=== PATIENT | female | born 1990 | race Two or more races ===

== ENCOUNTER 2017-06-15 15:20 | Emergency (ER) | payer OTHER ==
[2017-06-15 15:27] VITALS: BMI 34.2
--- NOTE | 2017-06-15 15:27 | PDOC ---
Rapid Medical Evaluation Chief Complaint: Pain Time Seen by Provider: 06/15/17 15:23 Medical Evaluation: 06/15/17 15:24 Pt presents with complaint of : dizziness, abd pain and vag discharge with itching On brief exam: vss I have ordered the following:proceed to L& D Pt will go to the 3 rd floor Discharge Disposition - Diagnosis Abdominal pain Qualifiers: Abdominal location: lower abdomen, unspecified Qualified Code(s): R10.30 - Lower abdominal pain, unspecified - Referrals - Patient Instructions - Post Discharge Activity
[2017-06-15 16:43] VITALS: BP 94/55; PULSE 90; TEMP 98.4
== END 2017-06-15 17:00 | disposition home or self-care (01) ==
LOC: JER 15:20
DX: O26.893 Other specified pregnancy related conditions, third trimester (principal); L29.2 Pruritus vulvae; R10.2 Pelvic and perineal pain; Z3A.29 29 weeks gestation of pregnancy
CPT/HCPCS: 99281-25

== ENCOUNTER 2017-08-23 17:40 | Inpatient (IN) | payer OTHER ==
[2017-08-23] MEDS ORDERED: ELECTROLYTE-148 SOLN 1,000 ML IV SCH (18:45)
[2017-08-23 18:46] VITALS: BMI 34.0
[2017-08-23 19:50] LABS: BASO % 0.2 % (0-2.0); EOS % 1.7 % (0-4.5); HEMATOCRIT 34.9 % (32.4-45.2); LYMPH % 15.3 % (8-40); MCH 20.8 pg (25.7-33.7); MCHC 31.6 g/dl (32.0-36.0); MEAN CELL VOLUME 65.8 fl (80-96); MEAN PLT VOLUME 10.8 fl (7.5-11.1); MONO % 5.5 % (3.8-10.2); NEUT % 77.3 % (42.8-82.8); PLATELET COUNT 172 K/MM3 (134-434); RDW 15.2 % (11.6-15.6)
[2017-08-23 20:04] LABS: INR 0.95 (0.82-1.09); PROTHROMBIN TIME (PATIENT) 10.7 SEC (9.98-11.88)
[2017-08-23 20:07] LABS: ACTIVATED PTT 24.2 SECONDS (26.9-34.4)
[2017-08-23 20:09] LABS: ANION GAP 10 (8-16); BLOOD UREA NITROGEN 3 mg/dL (7-18); CALCIUM 7.8 mg/dL (8.5-10.1); CHLORIDE 109 mmol/L (98-107); CO2 22 mmol/L (21-32); CREATININE 0.4 mg/dL (0.55-1.02); GLUCOSE,RANDOM 82 mg/dL (74-106); POTASSIUM 3.9 mmol/L (3.5-5.1); SODIUM 141 mmol/L (136-145)
[2017-08-23] MEDS ORDERED: FENTANYL/BUPIVACAINE/NS/PF - PCEA - 50 ML DISP.SYRIN EP ONE (20:19)
[2017-08-23] MEDS ORDERED: NALOXONE HCL 0.4 MG/ML VIAL IVPUSH PRN (21:37)
[2017-08-23] MEDS ORDERED: FENTANYL/BUPIVACAINE/NS/PF - PCEA - 50 ML DISP.SYRIN EP SCH (21:45)
--- NOTE | 2017-08-23 21:56 | HP ---
Past Medical History - Admission Chief Complaint: Labor pain History of Present Illness: 27 yo @ 37 weeks gestation, EDC 09/12/17, admitted for labor pain. Upon admission she was 2 cm dilated with spontaneous rupture of membrane. History Source: Patient Limitations to Obtaining History: No Limitations - Past Medical History ...: 3 ...Para: 2 ...Term: 2 ...: 0 ...Spon : 0 ...Induced : 0 ...Multiple Gestation: 0 ...LMP: 11/21/16 ... Weeks Gestation by Dates: 39.2 ...EDC by Dates: 08/28/17 ...EDC by Sono: 09/12/17 - Past Surgical History Past Surgical History: Yes: None Hx Myomectomy: No Hx Transabdominal Cerclage: No - Smoking History Smoking history: Never smoked Have you smoked in the past 12 months: No - Alcohol/Substance Use Hx Alcohol Use: No History of Substance Use: reports: None - Social History Usual Living Arrangement: Yes: With Spouse History of Recent Travel: No Home Medications - Allergies Allergies/Adverse Reactions: Allergies Allergy/AdvReac Type Severity Reaction Status Date / Time No Known Allergies Allergy Verified 08/23/17 18:46 - Home Medications Home Medications: Ambulatory Orders Ferrous Sulfate [Feosol] 325 mg PO BID 06/15/17 Vitamins (Sjr) - 1 tab PO DAILY 06/15/17 Family Disease History - Family Disease History Family History: Unremarkable Review of Systems - Review of Systems Constitutional: reports: No Symptoms Eyes: reports: No Symptoms HENT: reports: No Symptoms Neck: reports: No Symptoms Cardiovascular: reports: No Symptoms Respiratory: reports: No Symptoms Gastrointestinal: reports: No Symptoms Genitourinary: reports: Pain, Other (Rupture of membrane) Musculoskeletal: reports: No Symptoms Neurological: reports: No Symptoms Endocrine: reports: No Symptoms Psychiatric: reports: No Symptoms Pain Intensity: 6 Physical Exam - Maternity Vital Signs: Vital Signs Temperature 97.9 F 08/23/17 18:25 Pulse Rate 85 08/23/17 19:00 Respiratory Rate 20 08/23/17 19:00 Blood Pressure 114/63 08/23/17 19:00 O2 Sat by Pulse Oximetry (%) Constitutional: Yes: Well Nourished Eyes: Yes: Conjunctiva Clear HENT: Yes: Atraumatic Neck: Yes: Supple Cardiovascular: Yes: Regular Rate and Rhythm Lungs: Clear to auscultation - Abdominal Exam/OB Number of Fetuses: Single Presentation: Vertex Contractions: Yes Intensity: Moderate - Vaginal Exam/OB Vaginal Bleediing: No Presentation: Vertex/Position Station: -2 - Physical Exam Musculoskeletal: Yes: WNL ...Motor Strength: WNL Psychiatric: Yes: Alert, Oriented - Labs Lab Results: CBC, BMP 08/23/17 19:00 08/23/17 19:00 Problem List - Problems (1) Pain during labor Code(s): O99.89 - OTH DISEASES AND CONDITIONS COMPL PREG/CHLDBRTH; R52 - PAIN, UNSPECIFIED Assessment/Plan Spontaneous rupture of membrane Admit to L&D Anesthesia as needed
[2017-08-23] MEDS ORDERED: PROMETHAZINE HCL 25 MG/1 ML VIAL ONE (23:02)
[2017-08-23] MEDS ORDERED: BUTORPHANOL TARTRATE 1 MG/ML VIAL ONE ×2 (23:02)
[2017-08-23] MEDS ORDERED: OXYTOCIN 20 UNITS in 0.9% NS 20 UNIT/1,000 ML INFUS.BAG IV ONE (23:11)
[2017-08-23] MEDS ORDERED: BUTORPHANOL TARTRATE 1 MG/ML VIAL IVPB ONE (23:15)
[2017-08-23] MEDS ORDERED: PROMETHAZINE HCL 25 MG/1 ML VIAL IVPB ONE (23:15)
[2017-08-23] MEDS ORDERED: BENZOCAINE 28 GM HEMORRHOIDAL OINTMENT TP PRN (23:42)
[2017-08-23] MEDS ORDERED: BISACODYL 10 MG SUPP.RECT RC PRN (23:42)
[2017-08-23] MEDS ORDERED: WITCH HAZEL 50% (TUCKS) 40 PAD/JAR PAD TP PRN (23:42)
[2017-08-23] MEDS ORDERED: METHYLERGONOVINE MALEATE 0.2 MG/1 ML AMP IM PRN (23:42)
[2017-08-23] MEDS ORDERED: BENZOCAINE 20% 57 GM BOTTLE TP PRN (23:42)
--- NOTE | 2017-08-23 23:46 | PN ---
Delivery - Delivery Vaginal Delivery: Spontaneous Type of Anesthesia: Epidural Episiotomy/Laceration: None EBL (cc): 250 Delivery, Single - Feeding Plan Initial Plan: Elected not to breastfeed exclusively throughout hospitalization Remarks - Remarks Remarks: Normal spontaneous vaginal delivery of a live infant boy over intact perineum. Nose / Oropharynx suctioned @ perineum. Cord clamped and cut. Placenta expelled spontaneously intact.
[2017-08-24] MEDS ORDERED: ACETAMINOPHEN 325 MG TABLET (FP) ONE (00:30)
[2017-08-24] MEDS ORDERED: IBUPROFEN 600 MG TABLET (FP) PO ONE (00:31)
[2017-08-24] MEDS: ACETAMINOPHEN 325 MG TABLET (FP) PO PRN (00:32)
[2017-08-24] MEDS: IBUPROFEN 600 MG TABLET (FP) PO PRN ×3 (00:32→17:05)
[2017-08-24] MEDS ORDERED: OXYTOCIN 20 UNITS in 0.9% NS 20 UNIT/1,000 ML INFUS.BAG IV ONE (02:02)
[2017-08-24 08:21] LABS: BASO % 0.3 % (0-2.0); EOS % 0.5 % (0-4.5); HEMATOCRIT 37.4 % (32.4-45.2); HEMOGLOBIN 11.8 GM/dL (10.7-15.3); LYMPH % 12.6 % (8-40); MCH 20.6 pg (25.7-33.7); MCHC 31.5 g/dl (32.0-36.0); MEAN CELL VOLUME 65.4 fl (80-96); MEAN PLT VOLUME 10.6 fl (7.5-11.1); MONO % 4.9 % (3.8-10.2); NEUT % 81.7 % (42.8-82.8); PLATELET COUNT 179 K/MM3 (134-434); RBC 5.72 M/mm3 (3.60-5.2); RDW 15.4 % (11.6-15.6); WHITE BLOOD COUNT 19.7 K/mm3 (4.0-10.0)
--- NOTE | 2017-08-24 09:34 | PN ---
Post Progress Note - Subjective Subjective: 27 yo Para 3 status post vaginal delivery, seen and evaluated. Doing well. Post Day: 1 Type of Delivery: Vital Signs: Vital Signs Temperature 99.3 F 08/24/17 09:14 Pulse Rate 83 08/24/17 09:14 Respiratory Rate 20 08/24/17 09:14 Blood Pressure 110/60 08/24/17 09:14 O2 Sat by Pulse Oximetry (%) 99 08/24/17 01:15 Breast Exam: Yes: Soft Uterus: Yes: Fundus Firm Abdomen/GI: Yes: Abdomen soft, Tolerating PO Lochia: Yes: Rubra Lochia, amount: Moderate Extremities: Yes: Calves non-tender Perineum: Yes: Intact Activity: Ambulating - Labs Labs: CBC WBC 19.7 K/mm3 (4.0-10.0) H D 08/24/17 07:30 RBC 5.72 M/mm3 (3.60-5.2) H 08/24/17 07:30 Hgb 11.8 GM/dL (10.7-15.3) 08/24/17 07:30 Hct 37.4 % (32.4-45.2) 08/24/17 07:30 MCV 65.4 fl (80-96) L 08/24/17 07:30 MCH 20.6 pg (25.7-33.7) L 08/24/17 07:30 MCHC 31.5 g/dl (32.0-36.0) L 08/24/17 07:30 RDW 15.4 % (11.6-15.6) 08/24/17 07:30 Plt Count 179 K/MM3 (134-434) 08/24/17 07:30 MPV 10.6 fl (7.5-11.1) 08/24/17 07:30 Neutrophils % 81.7 % (42.8-82.8) 08/24/17 07:30 Lymphocytes % 12.6 % (8-40) 08/24/17 07:30 Monocytes % 4.9 % (3.8-10.2) 08/24/17 07:30 Eosinophils % 0.5 % (0-4.5) 08/24/17 07:30 Basophils % 0.3 % (0-2.0) 08/24/17 07:30 Problem List - Problems (1) Pain during labor Code(s): O99.89 - OTH DISEASES AND CONDITIONS COMPL PREG/CHLDBRTH; R52 - PAIN, UNSPECIFIED (2) Status post normal vaginal delivery Code(s): [id number] - Assessment/Plan Status post normal vaginal delivery Stable Continue routine care
[2017-08-24] MEDS ORDERED: SENNOSIDES/DOCUSATE COMBO (SENNA PLUS) TABLET (UD) PO PRN (22:00)
--- NOTE | 2017-08-25 07:39 | DS ---
Physical Exam-ACCOUNT RESOLUTION EXPERT Vital Signs: Vital Signs Temperature 98.6 F 08/24/17 21:24 Pulse Rate 84 08/24/17 21:24 Respiratory Rate 20 08/24/17 21:24 Blood Pressure 104/67 08/24/17 21:24 O2 Sat by Pulse Oximetry (%) 99 08/24/17 01:15 Constitutional: Yes: Well Nourished, No Distress, Calm Eyes: Yes: WNL, Conjunctiva Clear, EOM Intact HENT: Yes: WNL, Atraumatic, Normocephalic Neck: Yes: WNL, Supple, Trachea Midline Cardiovascular: Yes: WNL, Regular Rate and Rhythm Respiratory: Yes: WNL, Regular, CTA Bilaterally Gastrointestinal: Yes: WNL ...Rectal Exam: Yes: WNL Renal/: Yes: WNL ....Post : Yes: Uterus firm, Uterus non-tender, Slight lochia rubra Breast(s): Yes: WNL Musculoskeletal: Yes: WNL Extremities: Yes: WNL Edema: No Integumentary: Yes: WNL Neurological: Yes: WNL, Alert, Oriented ...Motor Strength: WNL Psychiatric: Yes: WNL, Alert, Oriented Labs: CBC, BMP 08/24/17 07:30 08/23/17 19:00 Delivery - Delivery Vaginal Delivery: Spontaneous Type of Anesthesia: Epidural Episiotomy/Laceration: None EBL (cc): 250 Delivery, Single - Stages of Labor Date 1st Stage Initiatied: 08/23/17 Time 1st Stage Initiated: 17:00 Date 2nd Stage Initiated: 08/23/17 Time 2nd Stage Initiated: 20:40 Date of Delivery: 08/23/17 Time of Delivery: 23:34 Time Placenta Delivered: 23:36 Placenta: Yes: Spontaneous - Condition of Cream Hauler/Emergency Planner Present: No Gender: Male Weight: 6 lb 6 oz Position: Left, OA Total Hours ROM (Hrs/Mins): 6 HOURS/ 34 MINUTES - 1 Minute Total Score: 9 5 Minutes Total Score: 9 - Feeding Plan Initial Plan: Elected not to breastfeed exclusively throughout hospitalization Discharge Summary Reason For Visit: LABOR Current Active Problems Pain during labor (Acute) Status post normal vaginal delivery (Acute) Procedures: Principal: Condition: Good - Instructions Diet, Activity, Other Instructions: regular diet, no intercourse , follow up [facility] 4 weeks Disposition: HOME - Home Medications Comprehensive Discharge Medication List: Ambulatory Orders Ferrous Sulfate [Feosol] 325 mg PO BID 06/15/17 Vitamins (Sjr) - 1 tab PO DAILY 06/15/17 Ibuprofen [Motrin -] 600 mg PO QID #28 tablet 08/24/17
[2017-08-25] MEDS: IBUPROFEN 600 MG TABLET (FP) PO PRN (08:11)
[2017-08-25] MEDS: ACETAMINOPHEN 325 MG TABLET (FP) PO PRN (08:11)
[2017-08-25 08:30] LABS: BASO % 0.6 % (0-2.0); EOS % 3.3 % (0-4.5); HEMATOCRIT 35.3 % (32.4-45.2); HEMOGLOBIN 11.2 GM/dL (10.7-15.3); LYMPH % 27.9 % (8-40); MCH 20.8 pg (25.7-33.7); MCHC 31.7 g/dl (32.0-36.0); MEAN CELL VOLUME 65.6 fl (80-96); MEAN PLT VOLUME 10.3 fl (7.5-11.1); NEUT % 62.2 % (42.8-82.8); PLATELET COUNT 167 K/MM3 (134-434); RBC 5.38 M/mm3 (3.60-5.2); RDW 15.4 % (11.6-15.6); WHITE BLOOD COUNT 13.3 K/mm3 (4.0-10.0)
[2017-08-25 09:38] VITALS: BP 98/67; PULSE 74; TEMP 98.1
== END 2017-08-25 12:55 | disposition home or self-care (01) | DRG 560 ==
LOC: JDEL 17:40 → JLDR 18:25 → J3W 08-24 02:45
PROVIDERS: ADMIT Obstetrics & Gynecology; ATTEND Obstetrics & Gynecology
PROC: 10E0XZZ Delivery of Products of Conception, External Approach (ICD-10-PCS; principal; 2017-08-23)
DX: O80 Encounter for full-term uncomplicated delivery (principal); Z3A.37 37 weeks gestation of pregnancy; Z37.0 Single live birth
CPT/HCPCS: 36415; 59409; 80048; 85025; 85610; 85730; 86593; 86850; 86900; 86901